=== PATIENT | female | born 1975 | race Caucasian/White ===

== ENCOUNTER 2019-07-15 08:34 | Day surgery (SDC) | payer OTHER ==
[2019-07-14 17:04] VITALS: BMI 31.1
[~2019-07-15 08:34] MED LIST: LACTATED RINGERS SOLUTION 1,000 ML IV SCH; ONDANSETRON 4 MG/2 ML VIAL IVPUSH PRN; oxyCODONE HCL 5 MG TABLET PO PRN
[2019-07-15] MEDS ORDERED: PROPOFOL 20 ML ONE (10:02)
[2019-07-15] MEDS ORDERED: MIDAZOLAM HCL 2 MG/2 ML SINGLE DOSE VIAL ONE (10:02)
[2019-07-15] MEDS ORDERED: LIDOCAINE HCL 1%, 10 MG/ML (20ML VIAL) INF ONE ×2 (10:29→10:41)
[2019-07-15] MEDS ORDERED: BUPIVACAINE HCL/PF 0.5% (5 MG/ML) 30 ML VIAL IJ ONE ×2 (10:29→10:41)
[2019-07-15] MEDS ORDERED: IOHEXOL 180 MG/1 ML ML IJ ONE ×2 (10:29→10:45)
[2019-07-15 11:29] VITALS: TEMP 97.7
[2019-07-15 11:52] VITALS: BP 102/55; PULSE 75
--- NOTE | 2019-07-19 21:01 | PROC ---
Procedure Note Procedure: Date of service: 07/15/2019 Preoperative Diagnosis: Low back pain and lumbarFacet arthropathy on right /Left Postoperative Diagnosis: Same Procedure Performed: Lumbar Facet Diagnostic blocks on Right / Left L3-4/L4-5/ L5-S1 with dye under Fluoroscopy Anesthesia: Local / MAC Anesthesiologist: Procedure: I discussed with the patient in detail about the risks, benefits and alternatives to treatment not only limited to infection, headache, numbness, weakness and injury to nerves, spinal cord, blood vessels and muscles. The patient understood, agreed and signed the written consent. The patient was placed in the prone position with the head, abdomen and legs supported with the pillows. The patients lower back was prepped and draped in a sterile fashion. Under C-arm and Scottie dog view eye was identified the L2-3, L3-4 and L4-5 levels on Left side. At the level of L3-4 (L3), 2 ml of 2% Lidocaine was infiltrated into the skin and subcutaneous tissue. A 5 inch #23 guage spinal needle was used to approach the eye of the Scottie dog in the oblique view until the tip of the needle contacted the bone with the use of intermittent fluoroscopy. Needle placement was confirmed both in the AP and oblique view. Aspiration was done which was negative for blood. 0.20 ml of dye omnipaque was injected to see the spread of the dye. A solution of 0.5 ml of preservative free 0.5% Marcaine was injected at this level. While the needle was withdrawn 1 ml of 2% Lidocaine was infiltrated. Similar procedure was repeated at left/ Right L4-5 (L4) and L5-S1 (L5) and Right L3-4 level. The patient tolerated the procedure well. Bleeding was checked. There were no immediate complications. The patient was observed and asked about pain level. The patient mentioned that there was improvement was more than 80%. The patient was told to apply ice at the injection sites. If there is any problem, call my office or report to the ER Patient was discharged as per [facility] criteria. Kalpesh Burk M.D.
== END 2019-07-15 11:45 | disposition home or self-care (01) ==
LOC: JASU-SURG 08:34
PROVIDERS: ATTEND Physical Medicine & Rehabilitation
PROC: 3E0T33Z Introduction of Anti-inflammatory into Peripheral Nerves and Plexi, Percutaneous Approach (ICD-10-PCS; 2019-07-15)
PROC: BR16YZZ Fluoroscopy of Lumbar Facet Joint(s) using Other Contrast (ICD-10-PCS; 2019-07-15)
PROC: 3E0T3BZ Introduction of Anesthetic Agent into Peripheral Nerves and Plexi, Percutaneous Approach (ICD-10-PCS; principal; 2019-07-15 11:30)
DX: M12.88 Other specific arthropathies, not elsewhere classified, other specified site (principal); M54.5 Low back pain
CPT/HCPCS: 76000-TC-FY; 84703